=== PATIENT | female | born 1985 | race Caucasian/White ===

== ENCOUNTER 2019-06-09 01:12 | Emergency (ER) | payer OTHER ==
[~2019-06-09] VITALS: Ht 170.2 cm; Wt 68.0 kg
[2019-06-09] MEDS ORDERED: ZANAFLEX4 MG PO (04:25)
[2019-06-09] MEDS ORDERED: XANAX1 MG PO (04:26)
[2019-06-09] MEDS ORDERED: LISINOPRIL10 MG PO (04:27)
[2019-06-09] MEDS ORDERED: NORCO 5-325 TA1 EAC1 PO (04:31)
[2019-06-09 08:14] VITALS: BP 66/49
== END 2019-06-09 08:15 | disposition home or self-care (01) ==
LOC: ER 01:12
DX: F10.129 Alcohol abuse with intoxication, unspecified (principal); Z88.0 Allergy status to penicillin

== ENCOUNTER 2019-07-07 13:53 | Inpatient (IN) | payer OTHER ==
[~2019-07-07] VITALS: Ht 167.6 cm; Wt 95.7 kg
[~2019-07-07 13:53] MED LIST: LISINOPRIL10 MG PO; NORCO 5-325 TA1 EAC1 PO; XANAX1 MG PO; ZANAFLEX4 MG PO
[2019-07-07 13:58] VITALS: BP 148/91
[2019-07-07 15:51] LABS: ABSOLUTE NEUTROPHILS 8.8 thou/uL (1.4-8.2); BASOPHILS 0.4 % (0.0-2.0); HEMATOCRIT 44.9 % (37.0-47.0); HEMOGLOBIN 15.7 gm/dL (12.0-15.0); LYMPHOCYTES 11.6 % (24.0-44.0); MCH 36.3 pg (26.0-34.0); MCHC 34.9 g/dL (28.0-37.0); MCV 104.1 fL (80.0-100.0); PLATELET COUNT 259 thou/uL (150-400); RBC 4.32 mil/uL (4.20-5.00); WBC 10.9 thou/uL (4.0-11.0)
[2019-07-07 16:00] LABS: CALCIUM 9.9 mg/dL (8.5-10.1); CREATININE 0.9 mg/dL (0.6-1.0); POTASSIUM 3.2 mmol/L (3.5-5.1)
[2019-07-07 16:07] LABS: ALBUMIN 4.6 g/dL (3.4-5.0); TOTAL BILIRUBIN 2.7 mg/dL (<0.1-1.0); TOTAL PROTEIN 7.8 g/dL (6.4-8.2)
[2019-07-07 20:17] LABS: PHOSPHORUS 1.5 mg/dL (2.5-4.9)
[2019-07-07 20:38] LABS: ABSOLUTE NEUTROPHILS 7.5 thou/uL (1.4-8.2); BASOPHILS 0.4 % (0.0-2.0); HEMATOCRIT 42.2 % (37.0-47.0); HEMOGLOBIN 14.8 gm/dL (12.0-15.0); LYMPHOCYTES 15.4 % (24.0-44.0); MCH 36.5 pg (26.0-34.0); MCHC 35.1 g/dL (28.0-37.0); MCV 103.9 fL (80.0-100.0); MONOCYTES 9.1 % (1.0-8.0); PLATELET COUNT 244 thou/uL (150-400); POLYS 75.1 % (36.0-66.0); RBC 4.06 mil/uL (4.20-5.00)
[2019-07-07 20:43] LABS: FOLIC ACID 8.8 ng/mL (8.6-58.9)
[2019-07-07 21:49] VITALS: BP 155/91
[2019-07-08 00:35] VITALS: BP 112/67
[2019-07-08 04:21] VITALS: BP 148/97
--- NOTE | 2019-07-08 05:31 | NUR ---
ASSUMED CARE OF PATIENT FROM ER. PATIENT ANXIOUS, AGITATED, RESTLESS, NAUSEAUS, DRY HEAVING. SEE [facility] DOCUMENTATION. ABLE TO COMPLETE ADMISSTION, ATIVAN GIVEN WITH DESIRED EFFECT. UNABLE TO VOID, BLADDER SCAN DOES NOT SHOW SIGNIFICANT AMOUNT IN BLADDER. HAS SPASMS AT TIMES THAT SHE ATTRIBUTES TO BEING NORMAL FOR HER. HOME MEDS VERIFIED WITH PATIENT AND RN, TAKEN TO PHARMACY. 2 LIGHTERS SENT TO SECURITY. EDUCATED ON SMOKING CESSATION AND ALCOHOL CESSATION AND DISEASE. STATES SHE DOES NOT WANT TO QUIT DRINKING, SHE WILL SIMPLY CUT BACK AND NOT DRINK MUCH. ADMITS SHE HAS PSYCHOLOGICAL DISORDERS, LIMITS HER ABILITY TO WORK. REFUSES NICOTINE PATCH. IN ROOM NEAR NURSES STATION FOR CLOSER OBSERVATION. POC GOALS ESTABLISHED, WILL CONTINUE TO MONITOR
[2019-07-08 05:56] LABS: CALCIUM 8.8 mg/dL (8.5-10.1); CREATININE 0.8 mg/dL (0.6-1.0); MAGNESIUM 2.6 mg/dL (1.8-2.4); PHOSPHORUS 2.5 mg/dL (2.5-4.9); POTASSIUM 3.8 mmol/L (3.5-5.1)
[2019-07-08 08:20] VITALS: BP 166/99
[2019-07-08 09:52] LABS: AMP/METHAMP Negative (Negative); BARBITURATES Negative (Negative); BENZODIAZEPINES POSITIVE (Negative); COCAINE Negative (Negative); METHADONE Negative (Negative); OPIATES POSITIVE (Negative); PCP Negative (Negative)
[2019-07-08 09:58] LABS: URINE BLOOD NEGATIVE (Negative); URINE CLARITY CLEAR; URINE COLOR YELLOW; URINE GLUCOSE-RANDOM* 1+ (Negative); URINE KETONES 3+ (Negative); URINE LEUKOCYTES-REFLEX NEGATIVE (Negative); URINE NITRITE-REFLEX POSITIVE (Negative); URINE PROTEIN (DIPSTICK) 1+ (Negative); URINE SPECIFIC GRAVITY 1.025 (1.005-1.035)
[2019-07-08 09:59] LABS: ICTOTEST (BILI CONFIRMATORY) Negative (Negative); URINE BILIRUBIN NEGATIVE (Negative)
[2019-07-08 10:07] LABS: BACTERIA-REFLEX 1-9 Few /HPF (None Seen); HYALINE CASTS 4-10 Moderate /LPF (None Seen); MUCUS 0-3 Light strn/LPF (None Seen); SQUAMOUS 0-3 Few /LPF (0-3); URINE RBC None Seen /HPF (0-2); URINE WBC-REFLEX 0-5 Rare /HPF (0-5)
[2019-07-08 10:08] LABS: CRYSTALS None Seen /LPF (None Seen)
[2019-07-08 11:23] VITALS: BP 154/105
[2019-07-08 16:54] VITALS: BP 157/82
--- NOTE | 2019-07-08 17:07 | NUR ---
ASSESSMENTS CHARTED - MEDS PER DEC - GIVEN LORAZEMPAM IV THIS AM AND THEN PO THIS AFTERNOON FOR AGGITATION - ANXIOUSNESS- TREMORS. PT WITH CO'S OF PAIN IN R HAND /WRIST TO BE GIVEN IBPROFEN WHEN AVIALABLE. PT UP TO THE BATHROOM WITH ASSIST WITH IV POLE - HAS VOIDED THIS SHIT - SPECIMENT SENT TO LAB. VIJAY CLEAR LIQQUID DIET - ADVANCED TO REG FOR DINNER - NO CO'S OF NAUSEA. PT HAS RESTED AT TIME THROUGHOUT THE DAY . NO CO'S AT THE RPESENT TIME.
--- NOTE | 2019-07-08 17:08 | NUR ---
Met with patient who was playing games on her smart phone and pacifier in mouth. Patient resides at home with spouse, son (13) and her mother. Patient rec disabiliy. PCP Dr Fisher, does not see a therapist. Reports daily drinker has cut down. She reports no concern with ETOH use. "In fact when they brought that (ETOH) up even my laughed. So my doesnt have a concern either." Offered ETOH treatment options but patient declined.
[2019-07-08 20:30] VITALS: BP 151/100
--- NOTE | 2019-07-09 02:36 | NUR ---
A/O X 4.IBUPROFEN GIVEN FOR PAIN AND LORAZEPAM FOR CIWA.PT STATES DON'T WAKE HER UP FOR MIDNIGHT VITALS.MONITOR SHOWS SINUS RHYTHM.IV FLUIDS INFUSING.WILL MONITOR AND CONTINUE POC.
[2019-07-09 04:45] VITALS: BP 151/98
[2019-07-09 05:41] LABS: CALCIUM 8.3 mg/dL (8.5-10.1); CREATININE 0.7 mg/dL (0.6-1.0); MAGNESIUM 1.8 mg/dL (1.8-2.4); PHOSPHORUS 2.3 mg/dL (2.5-4.9); POTASSIUM 3.1 mmol/L (3.5-5.1)
[2019-07-09 08:26] VITALS: BP 157/99
[2019-07-09] MEDS ORDERED: PRENATAL PO (09:46)
[2019-07-09] MEDS ORDERED: VITAMIN B-1100 M2 PO (09:46)
[2019-07-09] MEDS ORDERED: CEPACOL SORE T1 EAC7 PO (09:47)
[2019-07-09] MEDS ORDERED: LEVAQUIN 500 M500 M2 PO (09:47)
[2019-07-09 11:35] VITALS: BP 157/99
--- NOTE | 2019-07-09 14:24 | NUR ---
ASSESSMENT CHARTED - MEDS PER STEVEN LINARES DIET AND FLUIDS. UP AD LITZY IN ROOM - NO CO'S OF PAIN OR NAUSEA. PT HOME THIS AFTERNOON - INSTRUCTION REHOME MEDS/ FOLLOW UP AND CARE GIVEN TO PATIENT - STATED UNDERSTANDING OF INSTURCTION GIVEN. PT LEAVE UIT VIA WHEEL CHAIR - HOME VIA PVT VEHICL ACCOMAPNIED BY - IV AND MONITOR REMOVED PRIOR TO D/C. NO CO'S AT TIME OF DISCHARGE.
== END 2019-07-09 14:31 | disposition home or self-care (01) | DRG 153 ==
LOC: ER 13:53 → 2N 19:34 → EROBS 19:34 → 2N 21:28 → ENTRNSPT 07-09 14:24 → EDTRNSPTSTS 07-09 14:27 → 2N 07-09 14:31
PROVIDERS: Emergency Medicine; Nurse Practitioner Family; ADMIT Hospitalist
DX: J02.9 Acute pharyngitis, unspecified (principal); F10.10 Alcohol abuse, uncomplicated; E87.6 Hypokalemia; I10 Essential (primary) hypertension; F31.9 Bipolar disorder, unspecified; F17.210 Nicotine dependence, cigarettes, uncomplicated; F12.90 Cannabis use, unspecified, uncomplicated; E83.42 Hypomagnesemia; Z88.0 Allergy status to penicillin; Z88.8 Allergy status to other drugs, medicaments and biological substances; Z79.899 Other long term (current) drug therapy
CPT/HCPCS: 10081